=== PATIENT | female | born 1970 | race African-American/Black ===

== ENCOUNTER 2017-12-11 20:27 | Emergency (ER) | payer SELFPAY ==
[~2017-12-11] VITALS: Ht 154.9 cm; Wt 166.5 kg
[2017-12-11 20:40] VITALS: BP 154/83
--- NOTE | 2017-12-11 21:05 | NUR ---
TO ER CHAIR A
--- NOTE | 2017-12-11 21:05 | NUR ---
47Y F BIB FAMILY CAME IN W C/O NONPRODUCTIVE COUGH X 2 DAYS. PMH: COPD, TOOK ALBUTEROL HHN X 20 MINS AGO;PT DENIES N/V/D; SKIN IS PINK/WARM/DRY; AAOX4 WITH EVEN AND STEADY GAIT; HR EVEN AND REGULAR; PT DENIES ANY FEVER, CP, SOB, AT THIS TIME; PATIENT STATES PAIN OF 0/10 AT THIS TIME; VSS; PATIENT POSITIONED FOR COMFORT; HOB ELEVATED; BEDRAILS UP X2; BED DOWN. ER MD MADE AWARE OF PT STATUS.
--- NOTE | 2017-12-11 21:23 | NUR ---
Patient being evaluated by physician at bedside.
--- NOTE | 2017-12-11 21:35 | NUR ---
Patient discharged with v/s stable AND DC BY DR ANGELES. Written and verbal after care instructions given and explained BY DR ANGELES. Patient alert, oriented and verbalized understanding of instructions. Ambulatory with steady gait. All questions addressed prior to discharge. ID band removed. Patient advised to follow up with PMD. Rx of AUGMENTIN 875MG given. Patient educated on indication of medication including possible reaction and side effects. Opportunity to ask questions provided and answered BY DR ANGELES.
[2017-12-11 21:36] VITALS: BP 136/79
== END 2017-12-11 21:36 | disposition home or self-care (01) ==
LOC: MED 20:27
DX: J20.9 Acute bronchitis, unspecified (principal); I10 Essential (primary) hypertension; Z88.8 Allergy status to other drugs, medicaments and biological substances; Z87.891 Personal history of nicotine dependence
CPT/HCPCS: 99283